=== PATIENT | female | born 1985 | race Two or more races ===

== ENCOUNTER 2020-12-24 15:15 | Inpatient (IN) | payer OTHER ==
[~2020-12-24] VITALS: Ht 162.6 cm; Wt 61.2 kg
[2021-01-09] MEDS ORDERED: PRENATAL CAPLE1 EAC1 PO (09:41)
== END 2021-01-11 14:48 | disposition home or self-care (01) | DRG 807 ==
LOC: SURG-SUITE 01-09 07:58 → LDR 01-09 07:58 → SURG-SUITE 01-09 13:53 → OB/GYN 01-16 15:15
PROVIDERS: ADMIT Obstetrics & Gynecology; ATTEND Obstetrics & Gynecology
PROC: 10E0XZZ Delivery of Products of Conception, External Approach (ICD-10-PCS; principal; 2021-01-09)
PROC: 0KQM0ZZ Repair Perineum Muscle, Open Approach (ICD-10-PCS; 2021-01-09)
PROC: 10907ZC Drainage of Amniotic Fluid, Therapeutic from Products of Conception, Via Natural or Artificial Opening (ICD-10-PCS; 2021-01-09)
PROC: 3E033VJ Introduction of Other Hormone into Peripheral Vein, Percutaneous Approach (ICD-10-PCS; 2021-01-09)
PROC: 4A1HXFZ Monitoring of Products of Conception, Cardiac Rhythm, External Approach (ICD-10-PCS; 2021-01-09)
DX: O70.1 Second degree perineal laceration during delivery (principal); Z37.0 Single live birth; Z3A.39 39 weeks gestation of pregnancy; Z20.822 Contact with and (suspected) exposure to COVID-19

== ENCOUNTER → 2021-01-07 10:27 | Outpatient (CLI) | payer OTHER ==
[~2021-01-07 10:27] MED LIST: PRENATAL CAPLE1 EAC1 PO
== END | disposition home or self-care (01) ==
LOC: LAB 10:27
PROVIDERS: ATTEND Obstetrics & Gynecology Maternal & Fetal Medicine
DX: Z20.828 Contact with and (suspected) exposure to other viral communicable diseases (principal)